=== PATIENT | male | born 1995 | race Hispanic/Latino ===

== ENCOUNTER 2021-05-09 09:31 | Emergency (ER) | payer SELFPAY ==
[2021-05-09] MEDS ORDERED: Ondansetron PF 4 MG/2 ML Vial ONE (10:03)
[2021-05-09] MEDS ORDERED: Sodium Chloride 0.9% 1,000 ML ONE (10:03)
[2021-05-09] MEDS ORDERED: Morphine 4 MG/ML VIAL ONE (10:03)
[2021-05-09 10:16] LABS: Bilirubin Small (Negative); Blood, Urine Negative (Negative); Clarity Clear (Clear); Glucose, Urine (Dipstick) Negative (Negative); Ketone, Urine 15 mg/dL (Negative); Leukocyte Negative (Negative); Nitrite Negative (Negative); Protein, Urine (Dipstick) Negative (Neg-Trace); Specific Gravity, Urine 1.025 (1.005-1.030); Urobilinogen 0.2 mg/dL (Less than 2); pH, Urine 5.5 (5.0-9.0)
[2021-05-09 10:25] LABS: Phencyclidine (PCP) Not Detected (NotDetected); THC/Cannabinoid Screen Not Detected (NotDetected)
[2021-05-09 10:26] LABS: Amphetamine Detected (NotDetected); Barbiturates Screen Not Detected (NotDetected); Benzodiazepine Screen Not Detected (NotDetected); Cocaine Metabolite Screen Detected (NotDetected); Medtox Control Line Valid? VALID (VALID); Methadone Not Detected (NotDetected); Methamphetamine Detected (NotDetected); Opiate Screen Not Detected (NotDetected); Oxycodone Screen Not Detected (NotDetected); Tricyclic Screen Not Detected (NotDetected)
[2021-05-09 10:35] LABS: #Basophils 0.1 thou/uL (0.0-0.2); #Eosinphils 0.2 thou/uL (0.0-0.7); #Lymphocytes 1.5 thou/uL (1.20-3.40); #Monocytes 1.4 thou/uL (0.11-0.59); #Neutrophils 12.1 thou/uL (1.40-6.50); %Basophils 0.7 % (0.0-1.0); %Eosinophils 1.3 % (0.0-10.0); %Monocytes 9.1 % (0.0-10.0); %Neutrophils 78.9 % (42.0-75.0); Hemoglobin 16.4 g/dL (14.0-18.0); Mean Corpuscular HGB CONC 33.6 g/dL (32.0-36.0); Mean Corpuscular Hemoglobin 30.8 pg (27.0-31.0); Mean Corpuscular Volume 91.7 fL (78.0-98.0); Mean Platelet Volume 7.8 fL (7.4-10.4); Platelet Count 320 thou/uL (130-400); RBC Distribution Width 11.6 % (11.5-14.5); Red Blood Cell (RBC) Count 5.31 mill/uL (4.70-6.10); White Blood Cell (WBC) Count 15.3 thou/uL (4.8-10.8)
[2021-05-09 10:56] LABS: ALT (SGPT) 28 U/L (8-55); AST (SGOT) 24 U/L (5-34); Albumin 4.4 g/dL (3.5-5.0); Alkaline Phosphatase 92 U/L (40-110); Anion Gap 15 mmol/L (10-20); BUN (Urea Nitrogen) 13 mg/dL (8.9-20.6); Bilirubin, Total 1.2 mg/dL (0.2-1.2); CK (CPK) 247 U/L (30-200); Calc. Creatinine Clearance 0 mL/min (70-130); Calcium 10.4 mg/dL (7.8-10.44); Carbon Dioxide 28 mmol/L (22-29); Chloride 102 mmol/L (98-107); Globulin 3.8 g/dL (2.4-3.5); Glucose 98 mg/dL (70-105); Potassium 4.3 mmol/L (3.5-5.1); Protein, Total 8.2 g/dL (6.0-8.3); Sodium 141 mmol/L (136-145)
[2021-05-09 11:07] LABS: Magnesium 2.6 mg/dL (1.6-2.6)
== END 2021-05-09 12:45 | disposition home or self-care (01) ==
LOC: NAV ERS 09:31
DX: S72.112A Displaced fracture of greater trochanter of left femur, initial encounter for closed fracture (principal); E86.0 Dehydration; F19.90 Other psychoactive substance use, unspecified, uncomplicated; F17.210 Nicotine dependence, cigarettes, uncomplicated; W17.89XA Other fall from one level to another, initial encounter
CPT/HCPCS: 71045; 72131; 72192; 80053; 80306; 81003; 82550; 83735; 85025; 94760; 96374; 96375; J2270; J2405; J7050

== ENCOUNTER 2021-05-18 11:57 | Emergency (ER) | payer SELFPAY ==
[2021-05-19 14:49] LABS: SARS-CoV-2 PCR by NAA DETECTED (NotDetected)
== END 2021-05-18 12:45 | disposition home or self-care (01) ==
LOC: NAV ERS 11:57
DX: U07.1 COVID-19 (principal); E86.0 Dehydration; F17.210 Nicotine dependence, cigarettes, uncomplicated
CPT/HCPCS: 99283; U0003; U0005